=== PATIENT | male | born 1960 | race Caucasian/White ===

== ENCOUNTER → 2024-04-28 | Outpatient (CLI) | payer MEDICARE | LOC: M RAD 09:39 | PROVIDERS: ATTEND Nurse Practitioner Family | DX: Z13.6 Encounter for screening for cardiovascular disorders (principal); I70.0 Atherosclerosis of aorta ==

== ENCOUNTER → 2024-05-24 | Outpatient (CLI) | payer MEDICARE | LOC: M RAD 08:04 | PROVIDERS: ATTEND Nurse Practitioner Family | DX: Z12.2 Encounter for screening for malignant neoplasm of respiratory organs (principal); F17.210 Nicotine dependence, cigarettes, uncomplicated ==

== ENCOUNTER → 2025-04-07 | Outpatient (CLI) | payer MEDICARE ==
[~2025-04-07] MED LIST: ISOVUE-370 76% 100 ML VIAL As Ordered ONE
[2025-04-07 14:47] LABS: CREATININE FOR GFR 1.52 MG/DL (0.70-1.30); GLOMERULAR FILTRATION RATE 50.2 (>49)
== END ==
LOC: M RAD 13:55
PROVIDERS: ATTEND Surgery
DX: Z85.038 Personal history of other malignant neoplasm of large intestine (principal); J43.9 Emphysema, unspecified; Z98.0 Intestinal bypass and anastomosis status
CPT/HCPCS: 36415; 74177; 82565; 84520; Q9967

== ENCOUNTER 2025-04-12 08:39 | Day surgery (SDC) | payer MEDICARE ==
[~2025-04-12] VITALS: Ht 172.7 cm; Wt 49.6 kg
[~2025-04-12 08:39] MED LIST changes: +ALBU8.5H INH; -ISOVUE-370 76% 100 ML VIAL As Ordered ONE; +LOPE1CAP5 PO
[2025-04-12 09:54] VITALS: TEMP 97.8
[2025-04-12 10:25] VITALS: BP 122/68; O2SAT 98
[2025-04-17] MEDS ORDERED: LIDO5CRE6 (15:00)
== END 2025-04-12 10:45 | disposition home or self-care (01) ==
LOC: M OPP 08:39
PROVIDERS: ATTEND Surgery
DX: C18.9 Malignant neoplasm of colon, unspecified (principal); K56.690 Other partial intestinal obstruction; K62.89 Other specified diseases of anus and rectum; Z98.0 Intestinal bypass and anastomosis status; Z79.899 Other long term (current) drug therapy; Z85.09 Personal history of malignant neoplasm of other digestive organs

== ENCOUNTER → 2025-04-18 | Outpatient (CLI) | payer MEDICARE ==
[~2025-04-18] MED LIST changes: +LIDO5CRE6
== END ==
LOC: M ONCM 06:32
PROVIDERS: ATTEND Dietitian, Registered
DX: C20 Malignant neoplasm of rectum (principal); Z71.3 Dietary counseling and surveillance; Z68.1 Body mass index [BMI] 19.9 or less, adult

== ENCOUNTER → 2025-04-24 | Outpatient (CLI) | payer MEDICARE | LOC: M PLARAD 07:22 | PROVIDERS: ATTEND Specialist | DX: C18.8 Malignant neoplasm of overlapping sites of colon (principal) | CPT/HCPCS: 78815; A9552 ==

== ENCOUNTER → 2025-05-08 | Outpatient (CLI) | payer MEDICARE ==
[~2025-05-08] VITALS: Ht 172.7 cm; Wt 50.0 kg
[2025-05-08 07:02] VITALS: TEMP 97.5
[2025-05-08] MEDS: ceFAZolin SODIUM 2 GM in DEXTROSE 5% (D5W) ADV/MINI-BAG 50 ML IV ONE (07:20)
[2025-05-08] MEDS: NS (Normal Saline) 0.9% 1,000 ML IV SCH (08:32)
[2025-05-08] MEDS: MIDAZOLAM INJ 2 MG/2 ML VIAL IV PRN (08:46)
[2025-05-08] MEDS: LIDOCAINE 1% MDV 20 ML VIAL SC SCH (09:03)
[2025-05-08 09:20] VITALS: BP 126/58; O2SAT 99
== END ==
LOC: M IRPRO 06:43
PROVIDERS: ATTEND Specialist
DX: C20 Malignant neoplasm of rectum (principal)
CPT/HCPCS: 36561; 99152; 99153; J0690; J1642; J2250; J3010

== ENCOUNTER → 2025-05-17 | Outpatient (CLI) | payer MEDICARE | LOC: M ONCR 14:44 | PROVIDERS: ATTEND General Practice | DX: C18.8 Malignant neoplasm of overlapping sites of colon (principal); F17.210 Nicotine dependence, cigarettes, uncomplicated; Z90.49 Acquired absence of other specified parts of digestive tract; Z79.899 Other long term (current) drug therapy; Z80.0 Family history of malignant neoplasm of digestive organs; Z84.81 Family history of carrier of genetic disease ==

== ENCOUNTER → 2025-05-22 | Outpatient (POV) | payer MEDICARE ==
[~2025-05-22] VITALS: Ht 172.7 cm; Wt 50.0 kg
[2025-05-22 10:55] VITALS: BP 100/64; O2SAT 97
== END ==
LOC: M IRPOV 10:48
PROVIDERS: ATTEND Registered Nurse School
DX: Z45.2 Encounter for adjustment and management of vascular access device (principal)

== ENCOUNTER → 2025-06-13 | Outpatient (RCR) | payer MEDICARE ==
[~2025-06-13] MED LIST changes: +LIDO30CR18 TOP; +ONDA-284 PO; +PROC10TA5 PO
== END ==
LOC: M ONCR 05-26 07:46
PROVIDERS: ATTEND General Practice
DX: Z51.0 Encounter for antineoplastic radiation therapy (principal); C20 Malignant neoplasm of rectum

== ENCOUNTER 2025-07-03 12:55 | Observation (INO) | payer MEDICARE, MEDICAID ==
[~2025-07-03] VITALS: Ht 172.7 cm; Wt 40.6 kg
[~2025-07-03 12:55] MED LIST changes: +OXYC-517 PO
[2025-07-03] MEDS: SODIUM CHLORIDE 0.9% 1000 ML IV STA (13:43)
[2025-07-03 13:58] LABS: BASO # 0.0 10^3/uL (0.0-0.2); BASO % 0.6 % (0.0-1.0); EOS # 0.0 10^3/uL (0.0-0.5); EOS % 0.2 % (0.0-3.0); LYMPH # 0.1 10^3/uL (1.5-5.0); LYMPH % 1.9 % (24.0-44.0); MONO # 0.4 10^3/uL (0.0-0.8); MONO % 7.8 % (2.0-8.0); NEUTROPHILS # 4.7 10^3/uL (1.5-8.5); NEUTROPHILS % 87.8 % (36.0-66.0); PLATELET COUNT, AUTOMATED 138 10^3/uL (150-450)
[2025-07-03 14:22] LABS: C REACTIVE PROTEIN QUANTITATIV 1.31 MG/DL (<1.0)
[2025-07-03 14:53] LABS: INR 1.13
[2025-07-03 15:00] LABS: ALT/SGPT 45.0 U/L (7.0-40); AST/SGOT 38.0 U/L (<34); CALCIUM LEVEL 9.6 MG/DL (8.3-10.6); CARBON DIOXIDE LEVEL 25.0 MMOL/L (20-31); CHLORIDE LEVEL 94.0 MMOL/L (98-107); CREATININE FOR GFR 1.45 MG/DL (0.70-1.30); GLOMERULAR FILTRATION RATE 52.8 (>49); POTASSIUM SERUM 5.8 MMOL/L (3.5-5.1); SODIUM LEVEL 135.0 MMOL/L (136-145)
[2025-07-03] MEDS: NS 500 ML IV ONE ×2 (17:04→21:40)
[2025-07-03] MEDS: PIPERACILLIN/TAZOBACTAM SOD 4.5 GM in DEXTROSE 5% (D5W) ADV/MINI-BAG 50 ML IV ONE (17:42)
[2025-07-03] MEDS ORDERED: ISOVUE-370 76% 100 ML VIAL As Ordered ONE (17:47)
[2025-07-03] MEDS: VANCOMYCIN HCL 1,000 MG, VIAL MATE ADAPTER 1 EACH in NS 250 ML IV ONE (18:41)
[2025-07-03 19:25] LABS: CALCIUM LEVEL 7.2 MG/DL (8.3-10.6); CARBON DIOXIDE LEVEL 26.0 MMOL/L (20-31); CHLORIDE LEVEL 98.0 MMOL/L (98-107); CREATININE FOR GFR 1.13 MG/DL (0.70-1.30); GLOMERULAR FILTRATION RATE 71.2 (>49); POTASSIUM SERUM 4.3 MMOL/L (3.5-5.1); SODIUM LEVEL 132.0 MMOL/L (136-145)
[2025-07-03] MEDS ORDERED: ALBUTEROL 90 MCG/ACT 8 GM HFA INHALER INH PRN (21:20)
[2025-07-03] MEDS ORDERED: HOME MED LIST COMPLETE! XX SCH (21:35)
[2025-07-03] MEDS ORDERED: ONDANSETRON 4MG ORAL DISINTEGRATING TAB PO PRN (21:35)
[2025-07-04 07:46] LABS: PLATELET COUNT, AUTOMATED 101 10^3/uL (150-450)
[2025-07-04] MEDS: HEPARIN SOD 5000 UNITS/ML 1 ML VIAL/SYRINGE SQ SCH (07:51)
[2025-07-04 08:04] LABS: CALCIUM LEVEL 8.0 MG/DL (8.3-10.6); CARBON DIOXIDE LEVEL 27.0 MMOL/L (20-31); CHLORIDE LEVEL 101.0 MMOL/L (98-107); CREATININE FOR GFR 0.96 MG/DL (0.70-1.30); GLOMERULAR FILTRATION RATE 86.6 (>49); POTASSIUM SERUM 4.3 MMOL/L (3.5-5.1); SODIUM LEVEL 137.0 MMOL/L (136-145)
[2025-07-04 08:29] LABS: C REACTIVE PROTEIN QUANTITATIV 1.84 MG/DL (<1.0)
[2025-07-04] MEDS ORDERED: ENOXAPARIN 30 MG/0.3 ML SYRINGE (J1650 PER 10MG) SC SCH (09:00)
[2025-07-04] MEDS: LACTATED RINGER'S 1000 ML IV ONE (11:50)
[2025-07-04] MEDS: LR 1,000 ML IV SCH (12:29)
[2025-07-04 19:08] VITALS: BP 89/64; TEMP 98.6; O2SAT 96
[2025-07-04 21:19] VITALS: BP 88/62; TEMP 98.1; O2SAT 93
[2025-07-05 01:09] VITALS: BP_SYST 88; BP_SYST 92; BP_DIAS 52; BP_DIAS 60; TEMP 97.9; O2SAT 92
[2025-07-05] MEDS: LACTATED RINGERS IV SCH (02:22)
[2025-07-05 03:40] VITALS: BP 90/61; TEMP 98.1; O2SAT 95
[2025-07-05 06:06] LABS: PLATELET COUNT, AUTOMATED 102 10^3/uL (150-450)
[2025-07-05 06:34] LABS: CALCIUM LEVEL 8.0 MG/DL (8.3-10.6); CARBON DIOXIDE LEVEL 27 MMOL/L (20-31); CHLORIDE LEVEL 101 MMOL/L (98-107); CREATININE FOR GFR 0.83 MG/DL (0.70-1.30); GLOMERULAR FILTRATION RATE > 90.0 (>49); POTASSIUM SERUM 4.5 MMOL/L (3.5-5.1); SODIUM LEVEL 137 MMOL/L (136-145)
[2025-07-05 08:18] VITALS: BP 102/66; TEMP 97.7; O2SAT 95
[2025-07-05 11:44] VITALS: BP 100/62; TEMP 97.7; O2SAT 95
[2025-07-05 16:03] VITALS: BP 113/87; TEMP 98.1; O2SAT 88
== END 2025-07-05 17:40 | disposition home or self-care (01) ==
LOC: M ED 12:55 → M ED INP 21:18 → M MSPAV 07-04 19:06
PROVIDERS: ADMIT Student in an Organized Health Care Education/Training Program; ATTEND Student in an Organized Health Care Education/Training Program
DX: I95.89 Other hypotension (principal); E86.1 Hypovolemia; C18.9 Malignant neoplasm of colon, unspecified; E43 Unspecified severe protein-calorie malnutrition; J44.9 Chronic obstructive pulmonary disease, unspecified; Z79.899 Other long term (current) drug therapy
CPT/HCPCS: 36415; 71045; 71275; 74177; 80048; 80053; 80076; 82150; 82378; 83605; 83735; 84145; 85025; 85027; 85610; 85730; 86140; 86850; 86900; 86901; 87040; 87486; 87507; 87581; 87633; 87798; 93005; 93041; 94760; 96361; 96365; 96367; 96372; 96375; 96376; 97161; 99285; G0378; J2543; J3373; Q9967

== ENCOUNTER 2025-07-06 10:42 | Outpatient (RCR) | payer MEDICARE ==
[2025-07-07] MEDS ORDERED: OXYC-517 PO (13:14)
[2025-07-12] MEDS ORDERED: MIRT-10 PO (09:31)
[2025-07-12] MEDS ORDERED: HYOS125TA PO (09:31)
[2025-07-12] MEDS ORDERED: ONDA-282 PO (09:31)
[2025-07-12] MEDS ORDERED: RISATAB3 PO (09:31)
[2025-07-12] MEDS ORDERED: ATIV1TAB10 PO (09:31)
[2025-07-12] MEDS ORDERED: MORP1SOL5 PO (09:31)
== END 2025-07-14 ==
LOC: M ONCR 10:42
PROVIDERS: ATTEND General Practice
DX: Z51.0 Encounter for antineoplastic radiation therapy (principal); C20 Malignant neoplasm of rectum

== ENCOUNTER 2025-07-07 09:40 | Observation (INO) | payer MEDICARE, MEDICAID ==
[~2025-07-07] VITALS: Ht 172.7 cm; Wt 42.0 kg
[2025-07-07 10:44] LABS: BASO # 0.0 10^3/uL (0.0-0.2); BASO % 0.4 % (0.0-1.0); EOS # 0.0 10^3/uL (0.0-0.5); EOS % 0.2 % (0.0-3.0); LYMPH # 0.0 10^3/uL (1.5-5.0); LYMPH % 0.8 % (24.0-44.0); MONO # 0.3 10^3/uL (0.0-0.8); MONO % 7.1 % (2.0-8.0); NEUTROPHILS # 4.3 10^3/uL (1.5-8.5); NEUTROPHILS % 90.0 % (36.0-66.0); PLATELET COUNT, AUTOMATED 123 10^3/uL (150-450)
[2025-07-07 11:16] LABS: ALT/SGPT 37.0 U/L (7.0-40); AST/SGOT 26.0 U/L (<34); CALCIUM LEVEL 8.6 MG/DL (8.3-10.6); CARBON DIOXIDE LEVEL 24.0 MMOL/L (20-31); CHLORIDE LEVEL 98.0 MMOL/L (98-107); CREATININE FOR GFR 1.38 MG/DL (0.70-1.30); GLOMERULAR FILTRATION RATE 56.1 (>49); POTASSIUM SERUM 5.3 MMOL/L (3.5-5.1); SODIUM LEVEL 136.0 MMOL/L (136-145)
[2025-07-07] MEDS: NS 500 ML IV ONE (12:20)
[2025-07-07] MEDS: NS (Normal Saline) 0.9% 1,000 ML IV SCH ×2 (12:20→16:18)
[2025-07-07] MEDS ORDERED: OXYC-517 PO (13:14)
[2025-07-07] MEDS ORDERED: HOME MED LIST COMPLETE! XX SCH (13:15)
[2025-07-07] MEDS ORDERED: PERCOCET 5MG/325MG TAB PO PRN (13:55)
[2025-07-07] MEDS: NS (Normal Saline) 0.9% 1,000 ML IV ONE (14:19)
[2025-07-07] MEDS: IPRATROPIUM 0.5 MG/ALBUTEROL 2.5 MG INH SOL UD 3 ML NEB SCH (14:55)
[2025-07-07 15:23] VITALS: BP 93/47; TEMP 97.9; O2SAT 99
[2025-07-07 15:28] LABS: CORTISOL AM 51.5 UG/DL (4.3-22.4)
[2025-07-07 15:35] LABS: IRON (FE) 41.0 UG/DL (65-175); PERCENT SATURATION 14.8 % (19.7-50.0)
[2025-07-07 15:38] LABS: VITAMIN B12 LEVEL 207.0 PG/ML (211-911)
[2025-07-07] MEDS: LOPERAMIDE 2 MG CAPLET PO SCH (16:17)
[2025-07-07] MEDS: FERRIC CARBOXYMALTOSE INJ 750 MG, VIAL MATE ADAPTER 1 EACH in NS 100 ML IV ONE (17:29)
[2025-07-07] MEDS: CYANOCOBALAMIN 1,000 MCG/ML 1 ML VIAL IM SCH (17:30)
[2025-07-07 17:46] VITALS: BP 99/55; TEMP 98.5; O2SAT 97
[2025-07-07 18:06] VITALS: BP 101/54; TEMP 98; O2SAT 98
[2025-07-07 20:15] VITALS: BP 96/56; TEMP 99.9; O2SAT 100
[2025-07-07] MEDS: MIRTAZAPINE 7.5 MG PER 1/2 TABLET PO SCH (20:23)
[2025-07-07] MEDS: HEPARIN SOD 5000 UNITS/ML 1 ML VIAL/SYRINGE SQ SCH (20:23)
[2025-07-07] MEDS: METAMUCIL PACKET PO SCH (20:24)
[2025-07-07 23:54] VITALS: BP 95/57; TEMP 99; O2SAT 97
[2025-07-08 04:57] VITALS: BP 91/60; TEMP 99; O2SAT 100
[2025-07-08 05:19] LABS: PLATELET COUNT, AUTOMATED 102 10^3/uL (150-450)
[2025-07-08 05:45] LABS: CALCIUM LEVEL 7.8 MG/DL (8.3-10.6); CARBON DIOXIDE LEVEL 26 MMOL/L (20-31); CHLORIDE LEVEL 103 MMOL/L (98-107); CREATININE FOR GFR 0.86 MG/DL (0.70-1.30); GLOMERULAR FILTRATION RATE > 90.0 (>49); POTASSIUM SERUM 4.8 MMOL/L (3.5-5.1); SODIUM LEVEL 134 MMOL/L (136-145)
[2025-07-08 08:54] VITALS: BP 128/52; TEMP 98.2; O2SAT 100
[2025-07-08] MEDS: predniSONE 20 MG TAB PO SCH (11:05)
[2025-07-08 12:45] VITALS: BP 101/56; TEMP 97.5; O2SAT 96
[2025-07-08] MEDS ORDERED: LORazepam 1 MG TAB PO PRN (14:30)
[2025-07-08] MEDS ORDERED: ACETAMINOPHEN 325 MG TAB PO PRN (14:30)
[2025-07-08] MEDS ORDERED: HYOSCYAMINE SULFATE 0.125 MG SUBL TABLET PO PRN (14:30)
[2025-07-08] MEDS ORDERED: ONDANSETRON 4MG/2ML VIAL IV PRN (18:10)
[2025-07-08] MEDS: DIPHENOXYLATE HCL/ATROPINE 2.5 MG/0.025 MG TABLET PO SCH (20:09)
[2025-07-09] MEDS: MORPHINE 10 MG/0.5 ML ORAL CONCENTRATE SOLUTION U/D SL PRN (18:54)
[2025-07-11] MEDS ORDERED: ONDANSETRON 4MG ORAL DISINTEGRATING TAB PO PRN (17:55)
[2025-07-12] MEDS ORDERED: RISATAB3 PO (09:31)
[2025-07-12] MEDS ORDERED: MIRT-10 PO (09:31)
[2025-07-12] MEDS ORDERED: MORP1SOL5 PO (09:31)
[2025-07-12] MEDS ORDERED: ATIV1TAB10 PO (09:31)
[2025-07-12] MEDS ORDERED: ONDA-282 PO (09:31)
[2025-07-12] MEDS ORDERED: HYOS125TA PO (09:31)
== END 2025-07-12 12:24 | disposition hospice, home (50) ==
LOC: EDBD 09:40 → M ED 09:40 → INTOOBSV 13:52 → M ED INP 13:52 → M PCU 15:17 → M MSPAV 07-11 13:10
PROVIDERS: ADMIT Internal Medicine; ATTEND Internal Medicine
DX: I95.1 Orthostatic hypotension (principal); E87.29 Other acidosis; R42 Dizziness and giddiness; R19.7 Diarrhea, unspecified; K52.9 Noninfective gastroenteritis and colitis, unspecified; N17.9 Acute kidney failure, unspecified; E87.5 Hyperkalemia; C18.9 Malignant neoplasm of colon, unspecified; J44.1 Chronic obstructive pulmonary disease with (acute) exacerbation; D51.9 Vitamin B12 deficiency anemia, unspecified; D50.9 Iron deficiency anemia, unspecified; G89.3 Neoplasm related pain (acute) (chronic); D69.6 Thrombocytopenia, unspecified; E43 Unspecified severe protein-calorie malnutrition; F17.210 Nicotine dependence, cigarettes, uncomplicated; Z79.899 Other long term (current) drug therapy
CPT/HCPCS: 36415; 71045; 80048; 80076; 82533; 82607; 82728; 82746; 83550; 83605; 85025; 85027; 93005; 93041; 94640; 94760; 96361; 96372; 96374; 96375; 96376; 97161; 99285; G0378; J1439; J2919; J3420; J7512